=== PATIENT | female | born 1965 | race Hispanic/Latino ===

== ENCOUNTER 2023-09-07 06:26 | Day surgery (SDC) | payer OTHER, SELFPAY ==
[2023-09-07 08:53] VITALS: BMI 49.1
[2023-09-07 08:57] VITALS: BMI 49.1
[2023-09-07 08:58] VITALS: BP 134/75
[2023-09-07 10:00] VITALS: BP 119/65
[2023-09-07 10:15] VITALS: BP 107/91
[2023-09-07 10:30] VITALS: BP 125/74
== END 2023-09-07 11:08 | disposition home or self-care (01) ==
LOC: GI 06:26
PROVIDERS: ATTENDING PHYSICIAN Internal Medicine Gastroenterology
DX: D12.3 Benign neoplasm of transverse colon (principal); K63.5 Polyp of colon; K64.0 First degree hemorrhoids; R19.7 Diarrhea, unspecified
CPT/HCPCS: 45380; 88305